=== PATIENT | female | born 1965 | race Caucasian/White ===

== ENCOUNTER 2017-01-11 15:54 | Emergency (ER) | payer OTHER ==
[2017-01-11] MEDS ORDERED: DIAZEPAM 10 MG/2 ML SYR IM ONE (16:18)
[2017-01-11] MEDS ORDERED: KETOROLAC 30 MG/1 ML SDV IM ONE (16:19)
--- NOTE | 2017-01-11 16:34 | EDPHY ---
H & P Time Seen by Provider: 01/11/17 16:31 HPI/ROS: HPI: Ms. Fernandez is a 51 yrs, female who presents with Chief Complaint: falling off horse Location: left groin, lumbar back Quality: aching pain Duration: 1 hour prior to arrival Signs and Symptoms: no radiation, no weakness, no incontinence, no swelling, no N/V, no abdominal pain, no ataxia Timing: pain with weight bearing Severity: 8 Context: generally healthy. was riding horse today and fell off backward landing on left buttock. was able to stand and walk but pain in left groin and bilateral lower back developed soon after. similar occurrence 2-3 years ago with MRI "normal and just muscle injury" per patient. believes "my muscles are in spasm again." Modifying Factors: no OTC medications tried Comment: ROS: Eyes: No blurred vision Respiratory: No shortness of breath, no cough Cardiovascular: No chest pain Gastrointestinal: No nausea, no vomiting no diarrhea Genitourinary: No dysuria Extremities: No myalgias Neurologic: No weakness, no numbness Skin: No rashes Hematologic: No bruising, no bleeding MEDICAL/SURGICAL HISTORY: Past Medical/Surgical History: generally healthy. post-menopausal. Social History: . Smoking Status: Never smoked Physical Exam: CONSTITUTIONAL: mild distress petite white female, who appears younger than stated age, awake and alert, no obvious distress HEENT: Atraumatic and normocephalic, PERRL, EOMI. Tympanic membranes clear. Oropharynx clear, no exudate and moist pink mucosa. Airway patent. No lymphadenopathy. No meningismus. Cardiovascular: Normal S1/S2, regular rate, regular rhythm, without murmur rub or gallop. PULMONARY/CHEST: Symmetrical and nontender. Clear to auscultation bilaterally Good air movement. No accessory muscle usage. ABDOMEN: Soft, nondistended, nontender, no rebound, no guarding, no peritoneal signs, no masses or organomegaly. No CVAT. EXTREMITIES: 2/2 pulses, no deformities, no clubbing, no cyanosis or edema. left groin TTP; no deformity. no pain with frog leg position. BACK: bilateral reproducible lumbar tenderness, + paraspinous lumbar spasm, + DTR 2/2. left hip FROM flexion/IR/ER. NEUROLOGICAL: no focal neuro deficits. GCS 15. SKIN: Warm and dry, several old bruises to left hip and thigh. no erythema. no rash. Good capillary refill. Constitutional: Initial Vital Signs Temperature (C) 36.8 C 01/11/17 16:01 Heart Rate 86 01/11/17 16:01 Respiratory Rate 16 01/11/17 16:01 Blood Pressure 144/88 H 01/11/17 16:01 O2 Sat (%) 99 01/11/17 16:01 O2 Delivery Mode Room Air Allergies/Adverse Reactions: No Known Allergies Allergy (Unverified 03/28/14 15:22) Home Medications: Medication Instructions Recorded Diazepam [Valium 2 MG (*)] 2 mg PO Q8 PRN #10 tab 01/11/17 HYDROmorphone HCL [Dilaudid 2 mg 2 mg PO Q6-8PRN PRN #12 tab 01/11/17 (*)] Ondansetron Odt [Zofran Odt 4 mg 4 mg PO Q4 #10 tab 01/11/17 (*)] Medical Decision Making - Diagnostics Imaging Results: Imaging Impressions Lumbar Spine X-Ray 01/11/17 16:18 Impression: Possible minimal superior endplate L5 compression versus chronic change. If it is clinically important to determine if this is acute, then consider lumbar MRI to look for bone marrow edema. Of course, if there are any old outside images, we would be happy to review them, to assess for interval change. 2. AP Pelvis History: Pain and trauma, fall from horse Comparison: None Findings: No acute fracture or malalignment is identified. Impression: Nothing acute identified. 3. Sacrum and coccyx, 3 views History: Pain, fall from horse Findings: The SI joints are normally aligned. Fecal material overlies the sacrum. No fracture or malalignment is identified. Impression: Nothing acute identified. Pelvis X-Ray 01/11/17 16:18 Impression: Possible minimal superior endplate L5 compression versus chronic change. If it is clinically important to determine if this is acute, then consider lumbar MRI to look for bone marrow edema. Of course, if there are any old outside images, we would be happy to review them, to assess for interval change. 2. AP Pelvis History: Pain and trauma, fall from horse Comparison: None Findings: No acute fracture or malalignment is identified. Impression: Nothing acute identified. 3. Sacrum and coccyx, 3 views History: Pain, fall from horse Findings: The SI joints are normally aligned. Fecal material overlies the sacrum. No fracture or malalignment is identified. Impression: Nothing acute identified. Sacrum and Coccyx X-Ray 01/11/17 16:18 Impression: Possible minimal superior endplate L5 compression versus chronic change. If it is clinically important to determine if this is acute, then consider lumbar MRI to look for bone marrow edema. Of course, if there are any old outside images, we would be happy to review them, to assess for interval change. 2. AP Pelvis History: Pain and trauma, fall from horse Comparison: None Findings: No acute fracture or malalignment is identified. Impression: Nothing acute identified. 3. Sacrum and coccyx, 3 views History: Pain, fall from horse Findings: The SI joints are normally aligned. Fecal material overlies the sacrum. No fracture or malalignment is identified. Impression: Nothing acute identified. ED Course/Re-evaluation: xrays, IM and oral medications no signs of neurovascular compromise back/fracture back/dislocation xrays reviewed with Dr. Link and shows superior and inferior pubic rami fractures, ? L5 compression fx age indeterminate pain controlled at discharge PWB as tolerated; crutches, RICE, pain control, ortho follow up Differential Diagnosis: Back pain including but not limited to muscular pain, herniated disc, spine fracture, intra-abdominal causes and urinary tract infection. - Data Points Medications Given: Discontinued Medications Diazepam (Valium Injection) 5 mg IM EDNOW ONE Stop: 01/11/17 16:19 Last Admin: 01/11/17 16:35 Dose: 5 mg Hydromorphone HCl (Dilaudid) 1 mg PO EDNOW ONE Stop: 01/11/17 17:22 Last Admin: 01/11/17 17:34 Dose: 1 mg Ketorolac Tromethamine (Toradol) 60 mg IM EDNOW ONE Stop: 01/11/17 16:20 Last Admin: 01/11/17 16:36 Dose: 60 mg Departure - Departure Disposition: Home, Routine, Self-Care Clinical Impression: Closed fracture of left superior pubic ramus Qualifiers: Encounter type: initial encounter Qualified Code(s): S32.512A - Fracture of superior rim of left pubis, initial encounter for closed fracture Closed fracture of left inferior pubic ramus Qualifiers: Encounter type: initial encounter Qualified Code(s): S32.592A - Other specified fracture of left pubis, initial encounter for closed fracture Closed compression fracture of L5 lumbar vertebra Qualifiers: Encounter type: initial encounter Qualified Code(s): S32.050A - Wedge compression fracture of fifth lumbar vertebra, initial encounter for closed fracture Condition: Fair Instructions: Pelvic Fracture (ED) Additional Instructions: Orthopedic Follow Up Within 1 Week Referrals: Ritika Mae [Primary Care Provider] - As per Instructions Prescriptions: Diazepam [Valium 2 MG (*)] 2 mg PO Q8 PRN #10 tab PRN Reason: Spasms HYDROmorphone HCL [Dilaudid 2 mg (*)] 2 mg PO Q6-8PRN PRN #12 tab PRN Reason: Pain, Moderate Ondansetron Odt [Zofran Odt 4 mg (*)] 4 mg PO Q4 #10 tab
[2017-01-11] MEDS ORDERED: HYDROmorphONE/DILAUDID 2 MG TAB PO ONE (17:21)
[2017-01-11 18:21] VITALS: BP 115/63; PULSE 79; RESP 14; TEMP 98.4; O2SAT 96
== END 2017-01-11 18:20 | disposition home or self-care (01) ==
DX: S32.512A Fracture of superior rim of left pubis, initial encounter for closed fracture (principal); S32.592A Other specified fracture of left pubis, initial encounter for closed fracture; S32.050A Wedge compression fracture of fifth lumbar vertebra, initial encounter for closed fracture; V80.010A Animal-rider injured by fall from or being thrown from horse in noncollision accident, initial encounter; Y99.8 Other external cause status; Y93.52 Activity, horseback riding
CPT/HCPCS: J1885

== ENCOUNTER → 2018-05-30 | Outpatient (CLI) | payer OTHER | LOC: FIMAGING 16:47 | PROVIDERS: ATTEND Obstetrics & Gynecology | DX: N95.0 Postmenopausal bleeding (principal) ==